=== PATIENT | female | born 2000 | race Two or more races ===

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

== ENCOUNTER 2024-10-16 17:55 | Emergency (ER) | payer MEDICAID ==
[~2024-10-16] VITALS: Ht 154.9 cm; Wt 59.0 kg
--- NOTE | 2024-10-16 18:48 | DVH ---
CLINICAL INDICATION: middle finger injury TECHNIQUE: 3 radiographic views of the RIGHT HAND were obtained. Comparison: None FINDINGS/IMPRESSION: SOFT TISSUE INJURY OVER THE RIGHT 3RD DIGIT WITH QUESTIONABLE NONDISPLACED FRACTURE OF THE DISTAL TUF T.
[2024-10-16] MEDS ORDERED: AUG875T PO (21:37)
--- NOTE | 2024-10-16 21:38 | ED.PDOC ---
HPI Comments 24-year-old female presents to the ED chief complaint right middle finger injury. Patient states she accidentally got her right hand 3rd digit slammed in between the garage the tip. Complaining of laceration and pain. Denies numbness or weakness denies any other known injury. Bleeding controlled. Chief Complaint: Upper Extremity Time Seen by MD: 18:09 Primary Care Provider: ENRICO PRATT Reviewed Notes: Nurses Notes, Medications, Allergies Allergies: Coded Allergies: NO KNOWN ALLERGIES (Unverified , 07/30/18) Home Meds Active Scripts Amoxicillin & Pot Clavulanate (AUGMENTIN TABLET) 875 Mg Tb, 875 MG PO BID for 5 Days, #10 TAB Prov:TABITHA COLE RECOVERY COORDINATOR 10/16/24 Information Source: Patient Mode of Arrival: Ambulatory Complexity: Intermediate Laceration Length (cm): 1 Past Medical History PAST MEDICAL HISTORY: Denies Surgical History: Denies all surgeries DRAFTER LANDSCAPE History: Denies all DRAFTER LANDSCAPE Hx Family History Family History: Reviewed,noncontributory to illness Social History Smoker: Non-Smoker Alcohol: Denies ETOH Use Drugs: Denies Drug Use Lives In: Home Constitutional: denies: chills, diaphoresis, fatigue, fever, malaise, sweats, weakness, others EENTM: denies: blurred vision, double vision, ear bleeding, ear discharge, ear drainage, ear pain, ear ringing, eye pain, eye redness, hearing loss, mouth pain, mouth swelling, nasal discharge, nose bleeding, nose congestion, nose pain, photophobia, tearing, throat pain, throat swelling, voice changes, others Respiratory: denies: cough, hemoptysis, orthopnea, SOB at rest, shortness of breath, SOB with excertion, stridor, wheezing, others Cardiovascular: denies: chest pain, dizzy spells, diaphoresis, Dyspnea on exertion, edema, irregular heart beat, left arm pain, lightheadedness, palpitations, PND, syncope, others Gastrointestinal: denies: abdomen distended, abdominal pain, blood streaked bowels, constipated, diarrhea, dysphagia, difficulty swallowing, hematemesis, melena, nausea, poor appetite, poor fluid intake, rectal bleeding, rectal pain, vomiting, others Genitourinary: denies: abnormal vagina bleeding, burning, dyspareunia, dysuria, flank pain, frequency, hematuria, incontinence, pain, , vagina discharge, urgency, others Neurological: denies: dizziness, fainting, headache, left sided numbness, left sided weakness, numbness, paresthesia, pre-existing deficit, right sided numbness, right sided weakness, seizure, speech problems, tingling, tremors, weakness, others Musculoskeletal: denies: back pain, gout, joint pain, joint swelling, muscle pain, muscle stiffness, neck pain, others Integumetry: reports: laceration (Middle finger distal tip); denies: bruises, change in color, change in hair/nails, dryness, lesions, lumps, rash, wounds, others Allergic/Immunocompromised: denies: Difficulty Healing, Frequent Infections, Hives, Itching, others Hematologic/Lymphatic: denies: anemia, blood clots, easy bleeding, easy bruising, swollen glands, others Endocrine: denies: excessive hunger, excessive sweating, excessive thirst, excessive urination, flushing, intolerance to cold, intolerance to heat, unexplained weight gain, unexplained weight loss, others Psychiatric: denies: anxiety, bipolar disorder, depression, hopeless, panic disorder, schizophrenia, sleepless, suicidal, others Physical Exam General Appearance: No Apparent Distress, Normal HEENT: Pharynx Normal Neck: Full Range of Motion Respiratory: Lungs Clear, No Respiratory Distress, Normal Breath Sounds Cardiovascular: No Murmur, Normal Peripheral Pulses, Regular Rate/Rhythm Breast Exam: Deferred Gastrointestinal: Non Tender, Soft Genitalia: Deferred Pelvic: Deferred Rectal: Deferred Extremities: Normal capillary refill, Normal range of motion Musculoskeletal : Apperance: Normal Neurologic: Alert, No Motor Deficits, Normal Affect, Normal Mood, No Sensory Deficits Cerebellar Function: Normal Reflexes: NOT DONE Skin: Dry, Lacerations (Full-thickness avulsion 1.5 cm distal tip of 3rd digit right hand. Nail intact. Cap refill less than 3 seconds. Strength and sensory motion intact. Bleeding controlled. No obvious foreign body.), Normal Color, Warm Lymphatic: No Adenopathy Was a procedure done? Was a procedure done?: Yes Sedation Sedation?: No Informed consent obtained: Yes Laceration Repair : Location Distal aspect of right 3rd digit Length 1.5 cm avulsion/laceration Anesthetic: Lidocaine, Without epi, Digital nerve block Laceration Repair Prep: Saline, by Irrigation Laceration Repair Wound Comple: epidermis/dermis repair Laceration Repair: Number of sutures (4), Simple, Non-adherent gauze, Gauze Informed consent obtained: Yes Risks, benefits, and alternati: Yes Notes Patient tolerated well with minimal blood loss Differential diagnosis Generic Laceration: Retained Foriegn Body, Neurovascular Injury, Avulsion X-Ray, Labs, Meds, VS Vital Signs Date Time Temp Pulse Resp B/P (MAP) Pulse Ox O2 Delivery O2 Flow Rate FiO2 10/16/24 22:08 98.2 80 16 118/86 (97) 98 98.2 10/16/24 17:56 97.9 113 16 138/71 98 97.9 Current Medications Medications (Trade) Dose Ordered Sig/Emiliano Route Start Time Stop Time Status Last Admin Acetaminophen/ Hydrocodone Bitart (Mongo 5/325MG Tab) 1 tab ONCE ONCE PO 10/16/24 22:00 10/16/24 22:01 DC 10/16/24 22:08 X-Ray, Labs, Meds, VS Comment See procedure note. X-ray of right hand middle finger reviewed results mentioned tuft fracture distal aspect. Patient placed in splint. Script prophylactic antibiotics advised to take medication as prescribed side effects discussed. Advised to follow up with her PCP in two days for wound re-evaluation back at urgent care or ED. suture removal in 5-7 days. [id number] Tylenol or Motrin as needed for the pain per labeled dosing instructions. ER return precautions given patient indicates understanding agrees with discharge plan of care Time of 1ST Reevaluation: 18:40 Reevaluation 1ST: Unchanged Time of 2ND Reevaluation: 21:30 Reevaluation 2ND: Improved Patient Education/Counseling: Diagnosis, Treatment, Prognosis, Need For Follow Up Family Education/Counseling: Diagnosis, Treatment, Prognosis, Need For Follow Up Departure 1 Departure Time of Disposition: 21:35 Impression: Primary Impression: Finger laceration Qualified Codes: S61.312A - Laceration without foreign body of right middle finger with damage to nail, initial encounter Disposition: HOME / SELF CARE / HOMELESS Condition: Stable e-Prescriptions Amoxicillin & Pot Clavulanate (AUGMENTIN TABLET) 875 Mg Tb 875 MG PO BID for 5 Days, #10 TAB Prov: TABITHA COLE 10/16/24 Discharged With: Spouse Critical Care Note Critical Care Time?: No Stability Stability form required: No TABITHA COLEP Oct 16, 2024 21:37
[2024-10-16 22:08] VITALS: BP 118/86; PULSE 80; RESP 16; TEMP 98.2; O2SAT 98
[2024-10-16] MEDS: HYDROcodone-ACET 5/325MG TAB PO ONE (22:08)
== END 2024-10-16 22:30 | disposition home or self-care (01) ==
LOC: ER 17:55
DX: S61.312A Laceration without foreign body of right middle finger with damage to nail, initial encounter (principal); Z79.899 Other long term (current) drug therapy; W23.1XXA Caught, crushed, jammed, or pinched between stationary objects, initial encounter; Y93.89 Activity, other specified; Y92.89 Other specified places as the place of occurrence of the external cause; Y99.0 Civilian activity done for income or pay
CPT/HCPCS: 12001; 29130; 73130; 99283; J2003; 12002